=== PATIENT | male | born 1945 | race Caucasian/White ===

== ENCOUNTER → 2018-03-12 | Day surgery (SDC) | payer MEDICARE ==
[2018-03-09 15:31] LABS: BASOPHILS % 0.6 % (0.0-1.0); EOSINOPHILS # (AUTO) 0.2 (0.0-0.4); EOSINOPHILS % 2.9 % (0.0-6.0); HEMATOCRIT 41.9 % (38.2-49.6); HEMOGLOBIN 14.8 g/dL (14.0-18.0); LYMPHOCYTES # (AUTO) 1.9 (1.0-3.2); LYMPHOCYTES % 28.1 % (18.0-39.1); MEAN CORPUSCULAR HEMOGLOBIN 32.8 pg (28-32); MEAN CORPUSCULAR HGB CONC 35.3 g/dL (31-35); MEAN CORPUSCULAR VOLUME 92.9 fL (81-99); MONOCYTES # (AUTO) 0.7 (0.2-0.8); MONOCYTES % 9.9 % (4.4-11.3); NEUTROPHILS # (AUTO) 3.9 (2.1-6.9); PLATELET COUNT 176 x10e3/uL (140-360); RED BLOOD COUNT 4.51 x10e6/uL (4.3-5.7); RED CELL DISTRIBUTION WIDTH 12.5 % (11.7-14.4)
[2018-03-09 15:52] LABS: ANION GAP 14.2 mmol/L (8-16); BLOOD UREA NITROGEN 16 mg/dL (7-26); BUN/CREATININE RATIO 21 (6-25); CALCIUM 9.5 mg/dL (8.4-10.2); CARBON DIOXIDE 27 mmol/L (22-29); CHLORIDE 100 mmol/L (98-107); CREATININE, SERUM 0.76 mg/dL (0.72-1.25); EST GLOMERULAR FILTRATION RATE > 60 ML/MIN (60-); GLUCOSE 89 mg/dL (74-118); POTASSIUM 4.2 mmol/L (3.5-5.1); SODIUM 137 mmol/L (136-145)
[~2018-03-12] MED LIST: BELLADONNA/OPIUM 30 MG SUPP RC ONE; CEFTRIAXONE SOD 1 GM/NS 50 ML 50 ML IV ONE; CITRICAL; DEXAMETHASONE SOD PHOS INJ 4 MG/ML VIAL ONE; DIGOXIN125 MCG PO; FENTANYL CITRATE/PF 100MCG/2 ML INJ ONE; GENTAMICIN 80MG/NS 100 ML 200 ML IV ONE; IOPAMIDOL 610MG/1ML 300 MG/ML VIAL IV ONE; LIDOCAINE HCL 2% LOCAL INJ 5 ML SDV VIAL INJ ONE; LISINOPRIL10 MG PO; METOPROLOL SUCC50 MG PO; ONDANSETRON HCL INJ 2MG/ML 2ML 2 MG/ML VIAL ONE; PROPOFOL IV EMULSION 10 MG/ML 20 ML VIAL ONE; WARFARIN SODIU2.5 MG PO; WARFARIN SODIUM3 MG PO
[2018-03-12 15:40] VITALS: BP 141/92
--- NOTE | 2018-05-09 08:27 | Operative Report ---
DATE OF PROCEDURE: 03/12/2018 SURGEON: Nick Mayen MD PREOPERATIVE DIAGNOSES: 1. Obstructive benign prostatic hypertrophy. 2. Micro hematuria. POSTOPERATIVE DIAGNOSES: 1. Obstructive benign prostatic hypertrophy. 2. Micro hematuria. 3. Bladder stones. OPERATION PERFORMED: 1. Cystourethroscopy with bilateral ureteral catheterization and retrograde ureteropyelography (several procedures were performed for the micro hematuria). 2. Interpretation of retrograde ureteropyelography. 3. Cystolitholapaxy with holmium laser ( stones). 4. Cystourethroscopy with vaporization of the prostate utilizing the holmium laser (several procedures were performed for the obstructive BPH). ANESTHESIA: General. COMPLICATIONS: None. CLINICAL SUMMARY: Daniel Segovia is a 72-year-old male with prostate cancer, who is on hormone therapy. He has previously had urolith procedure followed by TURP. The patient upon cystoscopy, was found to have stone material within the prostate bed and he is brought to the operating room today for the above procedure. He is aware of the risks of bleeding, infection, injury to adjacent structures, need for additional procedures, and he elected to proceed. DESCRIPTION OF PROCEDURE: Informed consent was verified. Daniel Segovia was preoperatively identified, taken to operating room, placed on a cystoscopy table in supine position. Anesthesia was uneventfully began. The patient was then carefully and gently re-positioned in the dorsal lithotomy position with all pressure points well padded. His genitalia were prepared and draped in usual sterile fashion. A 22.5-[place] continuous flow cystoscope sheath was inserted under direct vision and was guided down on the unremarkable urethra through the normal sphincteric region, through the prostate bed, exhibited some bladder stones located within the prostate bed, embedded and attached to the lining of the prostatic urethra. We entered the patient's bladder, where we identified trabeculations, but there were no suspicious We proceeded with utilizing the holmium laser to vaporize all the stones and then we evacuated the stones. Following this, we examined the patient's prostatic urethra, which the lateral lobes appeared un-obstructive, but there was anterior tissue that was caving in and collapsing causing visual obstruction. We then increased the power on holmium laser to the maximum that the laser will allow. We proceeded with vaporizing the anterior tissue that was caving into the prostatic urethra thus performing a laser prostatectomy. We therefore had hemostasis and the cystoscope was withdrawn. The Lucas catheter was placed revealing a smooth prostate that is enlarged. The patient was uneventfully reversed from anesthesia and taken to the recovery room in stable condition. There were no complications during the procedure. He tolerated the procedure well. Postoperative instructions were given and we will follow the patient up in the office. Upon followup, we will plan on both assessing the patient's voiding and we will also of course monitor the patient for new stone formation. Nick MD Faheem [place]/MODL /[id number] cc: Jimbo Murcia MD
== END | disposition home or self-care (01) ==
LOC: OR 07:13
PROVIDERS: ATTEND Urology
DX: N21.0 Calculus in bladder (principal); C61 Malignant neoplasm of prostate; N40.1 Benign prostatic hyperplasia with lower urinary tract symptoms; N13.8 Other obstructive and reflux uropathy; N32.89 Other specified disorders of bladder; I48.91 Unspecified atrial fibrillation; I10 Essential (primary) hypertension; G47.33 Obstructive sleep apnea (adult) (pediatric); K21.9 Gastro-esophageal reflux disease without esophagitis; Z79.01 Long term (current) use of anticoagulants; Z87.891 Personal history of nicotine dependence
CPT/HCPCS: 36415; 52318; 74420; 80048; 85025; 93005; C1758; J0696; J1100; J1580; J2001; J2405; J2704; Q9967

== ENCOUNTER → 2022-04-30 | Outpatient (CLI) | payer MEDICARE ==
[~2022-04-30] MED LIST changes: -BELLADONNA/OPIUM 30 MG SUPP RC ONE; -CEFTRIAXONE SOD 1 GM/NS 50 ML 50 ML IV ONE; -DEXAMETHASONE SOD PHOS INJ 4 MG/ML VIAL ONE; -FENTANYL CITRATE/PF 100MCG/2 ML INJ ONE; -GENTAMICIN 80MG/NS 100 ML 200 ML IV ONE; +IOPAMIDOL 370 MG/ML 100 ML INFUS..BTL INJ ONE; -IOPAMIDOL 610MG/1ML 300 MG/ML VIAL IV ONE; -LIDOCAINE HCL 2% LOCAL INJ 5 ML SDV VIAL INJ ONE; -ONDANSETRON HCL INJ 2MG/ML 2ML 2 MG/ML VIAL ONE; -PROPOFOL IV EMULSION 10 MG/ML 20 ML VIAL ONE
[2022-04-30 08:59] LABS: CREATININE, SERUM 0.85 mg/dL (0.72-1.25)
== END ==
LOC: CT 08:10
PROVIDERS: ATTEND Internal Medicine Critical Care Medicine
DX: R06.00 Dyspnea, unspecified (principal); R91.8 Other nonspecific abnormal finding of lung field; I51.7 Cardiomegaly; I28.9 Disease of pulmonary vessels, unspecified
CPT/HCPCS: 36415; 71260; 82565; 84520; Q9967